=== PATIENT | female | born 1975 | race Caucasian/White ===

== ENCOUNTER → 2016-05-26 | Outpatient (CLI) | payer BC ==
[~2016-05-26] MED LIST: DXM4; SPIR25TA
--- NOTE | 2016-05-26 12:33 | DIAGNOSTIC IMAGING REPORT ---
LEFT CALCANEAL ULTRASOUND CLINICAL HISTORY: LEFT HEEL PAIN COMPARISON STUDY: No previous studies for comparison. FINDINGS: Ultrasonographic evaluation the left calcaneus reveal no pathologic masses, and no fluid collections to indicate an abscess. IMPRESSION: No ultrasound lesions identified. If symptoms persist, an MRI could be obtained in follow-up. Electronically signed by: Marcial Childs M.D. 05/26/2016 12:31 PM Dictated Date/Time: 05/26/2016 12:29 PM
== END | disposition home or self-care (01) ==
LOC: C.ULTR 11:52
PROVIDERS: ATTEND Physical Medicine & Rehabilitation
DX: T38.0X1A Poisoning by glucocorticoids and synthetic analogues, accidental (unintentional), initial encounter (principal); M21.752 Unequal limb length (acquired), left femur; M46.98 Unspecified inflammatory spondylopathy, sacral and sacrococcygeal region

== ENCOUNTER → 2016-07-04 | Outpatient (CLI) | payer BC ==
--- NOTE | 2016-07-04 09:10 | DIAGNOSTIC IMAGING REPORT ---
SINGLE VIEW PELVIS; 2 VIEWS RIGHT HIP; 2 VIEWS LEFT HIP CLINICAL HISTORY: Chronic bilateral hip pain. FINDINGS: An AP view of the pelvis with AP and frog-leg views of the right hip as well as AP and frog-leg views of the left hip are obtained. No prior studies are available for comparison at the time of dictation. The skeletal structures are well mineralized. No fracture is seen in the hips or pelvis. The joint spaces of the hips are preserved. Minimal bony overgrowth is noted along the acetabular roof bilaterally. A bone island is noted in the left iliac wing. Mild sclerotic degenerative change is noted in the sacroiliac joints. Small enthesophytes arise from the right anterior superior iliac spine. Small phleboliths are observed in the pelvis. The overlying soft tissues are within normal limits. IMPRESSION: 1. No acute bony abnormality or significant arthritic change is present in the hips. See above. 2. Mild sclerotic degenerative change is noted in the sacroiliac joints. Electronically signed by: Adrian Naylor M.D. 07/04/2016 9:09 AM Dictated Date/Time: 07/04/2016 9:07 AM
== END | disposition home or self-care (01) ==
LOC: C.RDSM 08:50
PROVIDERS: ATTEND Internal Medicine
DX: M25.551 Pain in right hip (principal)

== ENCOUNTER → 2017-06-26 | Outpatient (CLI) | payer BC ==
--- NOTE | 2017-06-29 15:18 | MAMMOGRAPHY REPORT ---
BILATERAL DIGITAL SCREENING MAMMOGRAM TOMOSYNTHESIS WITH CAD: 06/26/2017 CLINICAL HISTORY: Routine screening. TECHNIQUE: Breast tomosynthesis in addition to standard 2D mammography was performed. Current study was also evaluated with a Computer Aided Detection (CAD) system. COMPARISON: Comparison is made to exam dated: 11/25/2006. BREAST COMPOSITION: There are scattered areas of fibroglandular density in both breasts. FINDINGS: There is a newly visualized 7 mm focal asymmetry in the upper outer posterior right breast , for which additional spot compression tomosynthesis views and possible ultrasound are recommended. There are scattered benign-appearing calcifications in the breasts, many of which correspond to dermi s on the tomosynthesis images. No other suspicious mass, architectural distortion or cluster of micr ocalcifications is seen. IMPRESSION: ACR BI-RADS CATEGORY 0: INCOMPLETE EVALUATION: NEED ADDITIONAL IMAGING EVALUATION The newly visualized 7 mm focal asymmetry in the upper outer right breast need additional evaluation. The patient will be called to schedule an appointment. Approximately 10% of breast cancers are not detected with mammography. A negative mammographic report should not delay biopsy if a clinically suggestive mass is present. Lisa Callahan M.D. ay/:06/29/2017 11:08:37 Belt Machine Operator: Blake SANTAMARIA(Jacquie)(M), [facility] letter sent: Addl Imaging 0 BI-RADS Code: ACR BI-RADS Category 0: Incomplete Evaluation: Need Additional Imaging Evaluation
== END | disposition home or self-care (01) ==
LOC: C.MAMM 14:01
PROVIDERS: ATTEND Internal Medicine
DX: Z12.31 Encounter for screening mammogram for malignant neoplasm of breast (principal); N64.89 Other specified disorders of breast

== ENCOUNTER → 2017-07-09 | Outpatient (CLI) | payer BC ==
--- NOTE | 2017-07-09 14:03 | MAMMOGRAPHY REPORT ---
UNILATERAL RIGHT DIGITAL DIAGNOSTIC MAMMOGRAM TOMOSYNTHESIS AND TARGETED RIGHT ULTRASOUND: 07/09/2017 CLINICAL HISTORY: 42-year-old woman called back from screening mammography for an increasingly promin ent focal asymmetry in the upper outer posterior right breast. Family history of breast cancer = sis ter. TECHNIQUE: Spot compression right CC and MLO tomosynthesis images were obtained. COMPARISON: Comparison is made to exams dated: 06/26/2017 mammogram - [facility] and 11/25/2006. BREAST COMPOSITION: There are scattered areas of fibroglandular density in the right breast. FINDINGS: There is partial effacement of the irregular focal asymmetry in the upper outer posterior right breast, which measures a proximally 9.7 x 9.9 x 12.0 mm mammographically. No associated neptali ectural distortion or microcalcification. When comparing back to all available prior mammograms incl uding the 2011 and 2006 mammograms, this asymmetry is increasingly prominent. It appears somewhat si milar to the 2016 mammograms. Nevertheless, given that no asymmetry was present in 2006 and 2011, an d the strong family history of breast cancer, definitive characterization with tissue sampling is rec ommended. Targeted ultrasound was performed in the right upper outer quadrant to assess if the asymmetry is vis ible sonographically. However, only normal fibroglandular tissue is seen without a discrete solid or cystic mass. Therefore, stereotactic tomosynthesis guided biopsy is recommended. IMPRESSION: ACR BI-RADS CATEGORY 4: SUSPICIOUS, TARGETED ULTRASOUND ACR BI-RADS CATEGORY 4: SUSPICIO US 1. Right breast stereotactic tomosynthesis guided biopsy is recommended for an increasingly prominen t 12 mm focal asymmetry in the upper outer posterior right breast. These results and recommendations were discussed with the patient at the time of the exam. She tenta tively scheduled the biopsy prior to leaving our department. Approximately 10% of breast cancers are not detected with mammography. A negative mammographic report should not delay biopsy if a clinically suggestive mass is present. Lisa Callahan M.D. ay/:07/09/2017 09:06:16 Health Care Manager: Blake VO)(Gilberto), [facility] letter sent: Abnormal 4/5 BI-RADS Code: ACR BI-RADS Category 4: Suspicious Ultrasound BI-RADS: ACR BI-RADS Category 4: Suspici ous
== END | disposition home or self-care (01) ==
LOC: C.MAMM 08:25
PROVIDERS: ATTEND Internal Medicine
DX: N64.9 Disorder of breast, unspecified (principal)

== ENCOUNTER → 2017-07-16 | Outpatient (CLI) | payer BC ==
--- NOTE | 2017-07-16 13:15 | Discharge Instructions ---
Discharge Instructions Procedure Procedure Date: Jul 16, 2017. Reason for visit: Right Asymmetry. Discharge Discharge Date: Jul 16, 2017. Discharge Diagnosis: status post breast biopsy Instructions Activity Recommendations: Additional Limitations (see below) Return to School/Work: no limitations Recommended Home Diet: No Limitations Provider Instructions: ACTIVITY RECOMMENDATIONS: * No lifting, pushing, pulling or exercising the affected side for three days. RETURN TO SCHOOL/WORK: * You may return to work/school after the procedure, but do not perform any strenuous activities for 24 to 48 hours. MEDICATIONS: * Tylenol (two 325 mg) every four to six hours if needed for mild pain (if not allergic to Tylenol). DIET: * Resume previous diet. SPECIAL CARE INSTRUCTIONS: * Keep biopsy site dry for 24 hours. May shower after 24 hours, but do not soak (bathe) incision. * May remove Tegaderm (plastic patch) tomorrow AFTER showering. * Leave the steri-strips on for one week. Allow the steri-strips to fall off by themselves. If not off after one week, you may remove them. You may place a Bandaid crosswise over the strips, if desired. * Apply ice 10 minutes on and 10 minutes off as needed. * Wear a bra at bedtime to sleep more comfortably for 2-3 days. * Your referring physician should have the results after approximately 5 to 7 business days. * Call for unusual bleeding, fever, drainage, etc or if you have any questions call during normal business hours or after hours call Dr Dubose, . FOLLOW UP VISIT: Follow-up with Referring Physician as scheduled. Allergies Coded Allergies: Sulfa Drugs (Verified Allergy, Mild, RASH, 06/22/09) Angella Rene Recommendations: Call your doctor if: * Temperature above 101 degrees * Pain not relieved by pain medicine ordered * There is increased drainage or redness from any incision * You have any unanswered questions or concerns. Your Doctors Instructions noted above were prepared by provider Pita Dubose. Patient Signature Section: Patient Instructions Signature Page Jane Koo Patient (or Guardian) Signature/Date: I have read and understand the instructions given to me by my caregivers. Caregiver/RN/Doctor Signature/Date: The above-named patient and/or guardian has received patient instructions on this date. + Original Patient Signature Page (only) stays with chart. Please make copy for patient.
--- NOTE | 2017-07-16 15:18 | MAMMOGRAPHY REPORT ---
UNILATERAL RIGHT DIGITAL DIAGNOSTIC MAMMOGRAM TOMOSYNTHESIS: 07/16/2017 CLINICAL HISTORY: Status post right breast stereotactic biopsy. TECHNIQUE: Breast tomosynthesis in addition to standard 2D mammography was performed. Postprocedura l right CC and ML tomosynthesis images were obtained. COMPARISON: Comparison is made to exams dated: 07/09/2017 mammogram, 07/09/2017 ultrasound, and 06/26/19 18 mammogram - [facility]. BREAST COMPOSITION: There are scattered areas of fibroglandular density in the right breast. FINDINGS: A new biopsy marker clip is seen at the site of the biopsied asymmetry within the right la teral breast. No significant postbiopsy hematoma is evident. IMPRESSION: POST PROCEDURE IMAGING FOR MARKER PLACEMENT New biopsy marker clip status post right breast stereotactic biopsy. Pathology results are pending. Pending benign pathology results, recommend follow-up diagnostic mammograms of the right breast in 6 months. Approximately 10% of breast cancers are not detected with mammography. A negative mammographic report should not delay biopsy if a clinically suggestive mass is present. Pita Dubose M.D. ah/:07/16/2017 13:36:27 Immigration Inspector: Ginger SANTAMARIA(Jacquie)(Gilberto), [facility] BI-RADS Code: Post Procedure Imaging For Marker Placement
--- NOTE | 2017-07-16 15:18 | MAMMOGRAPHY REPORT ---
STEREOTACTIC GUIDED BIOPSY RIGHT BREAST: 07/16/2017 CLINICAL HISTORY: Focal asymmetry in the right upper outer quadrant. PATIENT CONSENT: The procedure, risks, benefits, and alternatives of stereotactic biopsy with clip pl acement were discussed with the patient, and verbal and written consent was obtained. A timeout was performed immediately prior to the procedure. PROCEDURE DESCRIPTION: With tomosynthesis stereotactic guidance, aseptic technique, and lidocaine as a local anesthetic (1% lidocaine to anesthetize the skin and 1% lidocaine with epinephrine to anesthe tize the deeper tissues), the asymmetry of concern in the right upper outer quadrant was sampled mult iple times with a 9-gauge vacuum-assisted biopsy needle ([employer]). The path of approach was cran iocaudal. A metallic marker clip was placed at the biopsy site. This was confirmed on postprocedure mammograms; see separate dictation for details. Direct pressure was applied at the biopsy site and hemostasis was readily achieved. The patient tolerated the procedure without complication. She was given wound care instructions. COMPARISON: Comparison is made to exams dated: 07/09/2017 ultrasound, 07/09/2017 mammogram, and 06/26/19 18 mammogram - [facility]. IMPRESSION: STEREOTACTIC GUIDED BIOPSY Tomosynthesis stereotactic biopsy of the focal asymmetry in the right upper outer quadrant, with clip placement. The patient will receive pathology results from her referring provider. If pathology re sults are benign, recommend follow-up diagnostic mammograms of the right breast in 6 months to shiva Dubose M.D. ah/:07/16/2017 13:34:36 Attending Technologist: Ara Fernandez RT(R)(M), [facility] Packing Checker: Ginger SANTAMARIA(R)(M), [facility]
== END | disposition home or self-care (01) ==
LOC: C.MAMM 12:27
PROVIDERS: ATTEND Internal Medicine
DX: R92.8 Other abnormal and inconclusive findings on diagnostic imaging of breast (principal); N64.89 Other specified disorders of breast